=== PATIENT | male | born 1950 | race Caucasian/White ===

== ENCOUNTER 2017-09-09 08:30 | Inpatient (IN) | payer OTHER ==
[~2017-09-09] VITALS: Ht 175.3 cm; Wt 69.9 kg
[~2017-09-09 08:30] MED LIST: CARDURA XL4 MG PO; FOLIC ACID1 MG PO; LABETALOL HCL100 MG PO; LONITEN2.5 MG PO; NIFE60TA3 PO; PEPCID20 MG PO; RENVELA0.8 GM PO; RESTORIL PO; TAMS0.4C PO
== END 2017-09-20 16:12 | disposition home or self-care (01) | DRG 707 ==
LOC: SURG 09-17 05:50 → O/R 09-17 05:50 → SURH 09-17 08:15 → SURG 09-17 16:10
PROVIDERS: Urology
PROC: 0VT00ZZ Resection of Prostate, Open Approach (ICD-10-PCS; principal; 2017-09-17 08:15)
PROC: 5A1D70Z Performance of Urinary Filtration, Intermittent, Less than 6 Hours Per Day (ICD-10-PCS; 2017-09-18)
DX: N40.1 Benign prostatic hyperplasia with lower urinary tract symptoms (principal); N18.6 End stage renal disease; I12.0 Hypertensive chronic kidney disease with stage 5 chronic kidney disease or end stage renal disease; R33.8 Other retention of urine; Z99.2 Dependence on renal dialysis; R31.0 Gross hematuria

== ENCOUNTER 2025-03-16 07:05 | Outpatient (CLI) | payer OTHER | END 2025-03-16 07:09 | disposition home or self-care (01) | LOC: SONOGRAMA 07:05 | PROVIDERS: ATTEND Urology | DX: C61 Malignant neoplasm of prostate (principal); N40.1 Benign prostatic hyperplasia with lower urinary tract symptoms; R97.20 Elevated prostate specific antigen [PSA] ==